=== PATIENT | male | born 1960 | race African-American/Black ===

== ENCOUNTER 2017-08-07 15:29 | Emergency (ER) | payer OTHER ==
[~2017-08-07] VITALS: Ht 180.3 cm; Wt 186.0 kg
[2017-08-07] MEDS ORDERED: SIMVASTATIN20 MG ORAL (15:34)
[2017-08-07] MEDS ORDERED: LISINOPRIL-HCT1 EAC2 ORAL (15:34)
[2017-08-07] MEDS ORDERED: PRILOSEC10 M1 ORAL (15:34)
[2017-08-07] MEDS ORDERED: BENZTROPINE MESY1 MG PO (15:34)
[2017-08-07] MEDS ORDERED: TYLENOL650 MG/20. ORAL (15:34)
[2017-08-07] MEDS ORDERED: ASPIR 8181 MG ORAL (15:34)
[2017-08-07 15:44] VITALS: BP 109/68
--- NOTE | 2017-08-07 16:10 | Emergency Room Report ---
History of Present Illness General Chief Complaint: Multiple Trauma/Fall Source: Patient, Medical Record Present Illness HPI 57 yo male patient presents to ER BIB ambulance s/p fall at his primary care providers office. Patient reports was at doctors office on the scale when he "slipped" and fell onto his left hip. Patient reports no to little pain in hip, able to ambulate independently. Reports walks with cane secondary to chronic knee pain. Denies hitting head, LOC or dizziness prior to accident. Denies vertigo. Denies eye pain, vision loss, or tinnitus. Denies hx of syncope. Denies fever, chest pain, SOB. Reports hx of bilateral lower leg edema, being treated by primary care physician. Denies hx of diabetes. Allergies: Coded Allergies: No Known Allergies (Unverified , 08/07/17) Patient History Past Medical History: see triage record Reviewed Nursing Documentation: PMH: Agreed; PSxH: Agreed Nursing Documentation-PMH Past Medical History: No History, Except For Hx Hypertension: Yes Review of Systems All Other Systems: negative except mentioned in HPI Physical Exam Vital Signs Date Time Temp Pulse Resp B/P (MAP) Pulse Ox O2 Delivery O2 Flow Rate FiO2 08/07/17 15:24 98.5 90 18 122/78 99 Room Air 98.4 Sp02 EP Interpretation: reviewed, normal General Appearance: well appearing, no apparent distress, alert, GCS 15, non- toxic Head: normocephalic, atraumatic, other - negative Street sign, negative Raccoon eyes, negative skull depression Eyes: bilateral eye normal inspection, bilateral eye PERRL, bilateral eye EOMI ENT: hearing grossly normal, normal pharynx, no angioedema, normal voice, uvula midline, moist mucus membranes Neck: full range of motion Respiratory: lungs clear, normal breath sounds, no rhonchi, no respiratory distress, no accessory muscle use, no wheezing, speaking full sentences Cardiovascular #1: regular rate, rhythm, edema Gastrointestinal: non tender, soft, no mass, non-distended, no guarding, no rebound Musculoskeletal: back normal, digits/nails normal, gait/station normal, normal range of motion, non-tender, no calf tenderness, pelvis stable, Michelle's Sign negative, other - NVI, sensation intact to light touch, no leg length discrepancy, no bny deformity Neurologic: alert, oriented x3, responsive, extracorporeal technician III-XII nml as tested, motor strength/tone normal, SLR negative, sensory intact, cerebellar normal, normal gait, speech normal Psychiatric: mood/affect normal Skin: other - lower leg edema and skin changes Lymphatic: no adenopathy Medical Decision Making PA Attestation Dr. Recio is my supervising Physician whom patient management has been discussed with. Diagnostic Impression: Primary Impression: Fall Additional Impression: Hip pain ER Course Pt. presents to the ED c/o left hip pain s/p fall. Ddx considered but are not limited to fracture, sprain, strain, contusion, dislocation. Patient fell on left hip, will order xray to rule out fracture or dislocation, low suspicion for fracture or dislocation, no limb length discrepancy, no deformity. Denies dizziness, LOC, syncope, negative Raccoon eyes, negative Street sign, no skull depression, does not require head CT or further labs at this time. Vital signs: are WNL, pt. is afebrile Ordered X-ray and pain medication. ER COURSE An X-ray of the left hip was ordered, results show no acute fracture per the official reading. An X-ray of the pelvis was ordered, results show no acute fracture per the official reading. Nurse contacted primary care provided requesting evaluation for multiple sclerosis. Reports patient not previously diagnosed with MS. PE shows cranial nerves intact, finger to nose intact, heel to blanton intact bilaterally, motor strength intact bilaterally. Low suspicion for MS exacerbation. Following completion of x-rays, attempted to contact PCP again, unable to do so. Informed patient of PCP concern for MS, patient denies hx of MS, instructed patient to followup with PCP for MS diagnosis and evaluation, does not require acute treatment in ER, outpatient followup required. Informed patient that he is medically cleared to go home. Patient seen ambulating in ER independently, without difficulty. Patient OK for discharge to home. Patient has cane, does not require crutches. Patient instructed on RICE method: rest, ice, compression, elevation. Patient instructed to WBAT. Patient reports will take cab home. Close followup with PCP for bilateral lower leg edema and skin changes consistent with vascular disease. Patient reports being seen and treated for edema. Does not require acute tx in ER at this time. Patient reports will followup this week. DISCHARGE: -Rx provided for Tylenol for pain symptoms. Take with food for pain symptoms. At this time pt. is stable for d/c to home. Patient is resting comfortably, in no acute distress, nontoxic appearing, talking without difficulty. Will provide printed patient care instructions, and any necessary prescriptions. Patient instructed to follow with primary care provider in 1-3 days and to request further orthopedic follow-up. Care plan and follow up instructions have been discussed with the patient prior to discharge. Take medications as directed. Patient questions asked and answered. Patient reports understanding and agreement to treatment plan. ER precautions given, patient instructed to return to ER immediately for any new or worsening of symptoms. Other X-Ray Diagnostic Results Other X-Ray Diagnostic Results #1: X-Ray ordered: pelvic xray # of Views/Limited Vs Complete: 1 View Indication: Pain EP Interpretation: Yes PA Xray: Interpretation reviewed, by supervising MD, and agrees with findings. Interpretation: no dislocation, no soft tissue swelling, no fractures Impression: No acute disease PA Scribe Text Yeyo Hernandez PA-C Other X-Ray Diagnostic Results #2: X-Ray ordered: left hip xray # of Views/Limited Vs Complete: 3 View Indication: Pain EP Interpretation: Yes PA Xray: Interpretation reviewed, by supervising MD, and agrees with findings. Interpretation: no soft tissue swelling, no fractures Impression: No acute disease PA Scribe Text Yeyo Hernandez PA-C Last Vital Signs Date Time Temp Pulse Resp B/P (MAP) Pulse Ox O2 Delivery O2 Flow Rate FiO2 08/07/17 15:44 98.4 92 18 109/68 99 Room Air 98.4 Disposition: HOME, SELF-CARE Condition: Stable Scripts Acetaminophen* (TYLENOL EXTRA STRENGTH*) 500 Mg Tablet 500 MG ORAL Q8H PRN for Prn Headache/Temp > 101, #30 TAB 0 Refills Prov: Bentley Hernandez 08/07/17 Referrals: [facility]ERR[facility] (PCP) Patient Instructions: Fall Prevention in the Home, [id number], Hip Pointer, [id number] Additional Instructions: Followup with primary care provider in 1-3 days for further treatment and referral. Take medications as directed. Patient questions asked and answered. ER precautions given, patient instructed to return to ER immediately for any new or worsening of symptoms. Bentley Hernandez Aug 07, 2017 16:10
--- NOTE | 2017-08-07 16:34 | Diagnostic Imaging Report ---
Indication: Pain Technique: One view of the pelvis, 2 views of the left hip Comparison: none Findings: No acute fractures. No dislocations. The joint spaces are preserved. Impression: Negative
[2017-08-07] MEDS ORDERED: TYLENOL EXTRA500 MG ORAL (17:48)
[2017-08-07 18:14] VITALS: BP_SYST 109; BP_SYST 119; BP_DIAS 68; BP_DIAS 80
== END 2017-08-07 18:14 | disposition home or self-care (01) ==
LOC: EDBD 15:29 → EMR 15:46
DX: M25.552 Pain in left hip (principal); W01.0XXA Fall on same level from slipping, tripping and stumbling without subsequent striking against object, initial encounter; Y92.531 Health care provider office as the place of occurrence of the external cause
CPT/HCPCS: 72170; 73502; 99284